=== PATIENT | male | born 1960 | race Caucasian/White ===

== ENCOUNTER 2019-11-25 13:49 | Emergency (ER) | payer OTHER, SELFPAY ==
[2019-11-25 13:54] VITALS: BP 118/71; PULSE 85; RESP 20; TEMP 37.6; O2SAT 98
--- NOTE | 2019-11-25 14:38 | ED.GENADULT ---
HPI - General Adult General Chief complaint: Unspecified Stated complaint: cold, stomach bothers me, decreased intake Time Seen by Provider: 11/25/19 14:34 Source: patient Mode of arrival: ambulatory Limitations: no limitations History of Present Illness HPI narrative: A 59 y/o male presents to the ED with c/o decreased appetite. Pt states that yesterday he did not feel like eating and has felt the same today. He reports fatigue and chills, but denies MALONEY, sore throat, ABD pain, N/V/D, cough, and trouble swallowing. Pt is unsure if he has had a fever. He denies any aggravating or alleviating factors for his symptoms. Dr. Martin is his PCP. complaint: Decreased appetite Onset (ago): day(s) (1) Relieving factors: none Exacerbating factors: none Associated symptoms: fever/chills and other (Fatique) Related Data Allergies Allergy/AdvReac Type Severity Reaction Status Date / Time No Known Allergies Allergy none Unverified 06/10/17 18:25 Review of Systems Review of Systems: All systems reviewed & are unremarkable except as noted in HPI and below Constitutional: Constitutional: Reports chills, Reports fatigue and Reports poor appetite ENT: Denies sore throat and Denies other (Trouble swallowing) Respiratory: Respiratory: Denies cough Gastrointestinal: Gastrointestinal: Denies abdominal pain, Denies diarrhea, Denies nausea and Denies vomiting Neurologic: Denies headache(s) PMFSH Past Medical History Medical History (Updated 11/25/19 @ 15:29 by Jeaneth Salazar MD) Prostate cancer Surgical History Surgical History (Updated 11/25/19 @ 14:40 by Leila Butcher) History of hernia repair Social History Social History (Updated 11/25/19 @ 14:40 by Leila Butcher) Smoking status: Never smoker Exam Const: General: cooperative, no acute distress and alert Nutritional Appearance: well nourished Orientation/consciousness: patient oriented x3 Limitations: no limitations HENMT: Mouth: Yes lip normal and Yes moist mucous membranes Throat: posterior oropharynx abnormal erythema Neck: Neck: lymphadenopathy anterior cervical Resp: Effort & Inspection: normal respiratory effort Auscultation: clear to auscultation bilaterally Cardio: Rate: regular rate Rhythm: regular rhythm GI: GI Palp: Yes Soft to palpation and No Tenderness to palpation present (GI) Auscultation: normal bowel sounds Skin: General skin exam: normal color Neuro: General: patient oriented x3 Cognition (Neuro): normal cognition Speech: normal speech Extrem: General: normal to inspection, full ROM and no clubbing, cyanosis or edema Psych: Mental Status: mental status grossly normal Affect: normal affect Attitude: cooperative Course Course Emergency Course: Patient with what sounds like fever at home. Patient without significant focal symptomatology. He does have positive strep testing accompanied with pharyngeal erythema and anterior cervical adenopathy. Will prescribe amoxicillin and advised primary care follow-up. Vital Signs Vital signs: Vital Signs Temperature 99.7 F H 11/25/19 13:54 Pulse Rate 85 11/25/19 13:54 Respiratory Rate 11/25/19 13:54 Blood Pressure 118/71 11/25/19 13:54 Pulse Oximetry 98 11/25/19 13:54 Temperature 99.7 F H 11/25/19 13:54 Pulse Rate 85 11/25/19 13:54 Respiratory Rate 11/25/19 13:54 Blood Pressure 118/71 11/25/19 13:54 Pulse Oximetry 98 11/25/19 13:54 Medical Decision Making Vital Signs Vital Signs: Vital Signs Temperature 99.7 F H 11/25/19 13:54 Pulse Rate 85 11/25/19 13:54 Respiratory Rate 20 11/25/19 13:54 Blood Pressure 118/71 11/25/19 13:54 Pulse Oximetry 98 11/25/19 13:54 Temperature 99.7 F H 11/25/19 13:54 Pulse Rate 85 11/25/19 13:54 Respiratory Rate 11/25/19 13:54 Blood Pressure 118/71 11/25/19 13:54 Pulse Oximetry 98 11/25/19 13:54 Lab Data Lab results reviewed: Yes I reviewed the patient's lab resul
[2019-11-25 16:12] VITALS: BP 118/67; PULSE 68; RESP 16; O2SAT 99
== END 2019-11-25 16:15 | disposition home or self-care (01) ==
PROVIDERS: Emergency Provider Emergency Medicine; PCP Internal Medicine Infectious Disease
DX: J02.0 Streptococcal pharyngitis (principal)
CPT/HCPCS: 87804; 87880; 99283

== ENCOUNTER 2021-03-31 08:17 | Emergency (ER) | payer OTHER, SELFPAY ==
--- NOTE | ~2021-03-31 | XR_ITS ---
EXAMINATION: XR femur RT min 2V DATE: 03/31/2021 10:09 INDICATION: Right upper leg pain and erythema TECHNIQUE: Overlapping proximal and distal, AP and lateral views of the right femur were obtained. COMPARISON: None FINDINGS: Alignment is normal. No fracture. Mild osteoarthritis at the right knee with small central osteophyt e and subarticular cystic change at the apical ridge suggesting associated high-grade patellar chondr omalacia. Small enthesopathic ossicle at the proximal pole of the patella. No cortical erosions or pe riosteal reaction. Couple surgical clips project over the right pubic body and one along the soft tis sues at the medial aspect of the mid thigh. No knee joint effusion. Soft tissues are unremarkable. IMPRESSION: 1. 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 No other osseous abnormality. Reviewed, dictated and finalized at location A.
[2021-03-31 08:22] VITALS: BP 147/83; PULSE 75; RESP 20; TEMP 36.4; O2SAT 98
--- NOTE | 2021-03-31 09:34 | ED.WOUNDLAC ---
HPI - Wound/Laceration General Chief Complaint: Wound/Laceration Stated Complaint: right leg pain Time Seen by Provider: 03/31/21 09:03 Source: patient Mode of arrival: ambulatory Limitations: no limitations History of Present Illness HPI narrative: This is a 60-year-old male that presents to the emergency department for a rash noted over the last couple of days. Reports he soaked his feet in hot water and after that noted a red rash on his bilateral lower extremities. Right reports yesterday he started to note an area of redness to the right upper thigh with central bruising. This area is painful to touch. No known injury or trauma. Denies fever. Related Data Allergies Allergy/AdvReac Type Severity Reaction Status Date / Time No Known Allergies Allergy none Verified 03/31/21 08:28 Review of Systems Review of Systems: Narrative: CONSTITUTIONAL: Denies fever SKIN: Reports rash. Denies itching. All systems reviewed & are unremarkable except as noted in HPI and below PMFSH Past Medical History Medical History (Updated 03/31/21 @ 11:51 by Karine John PA-C) Prostate cancer Surgical History Surgical History (Updated 11/25/19 @ 14:40 by Leila Butcher) History of hernia repair Social History Social History (Updated 11/25/19 @ 14:40 by Leila Butcher) Smoking status: Never smoker Gender identity (if verbalized by the patient): Male Exam Narrative: Exam Narrative: GENERAL: Well-appearing, well-nourished, and in no acute distress. HEAD: Normocephalic, atraumatic. EYES: EOMI. ENT: Nares clear, no rhinorrhea or epistaxis. Mucous membranes moist. Oropharynx without tonsillar hypertrophy exudate or other lesions. Bilateral TMs pearly jimenez non-bulging NECK: Supple. No adenopathy or masses. CHEST: Clear to auscultation. No respiratory distress. No wheezes rales or rhonchi HEART: Regular rate and rhythm. No murmur heard. Normal peripheral pulses. EXTREMITIES: Normal range of motion. No edema. SKIN: Warm, dry. Scattered, red macules present on the bilateral lower extremities. Right upper thigh with moderate sized area of erythema with central clearing with purpuric lesions centrally NEURO: No focal deficits. Alert and oriented x3. PSYCH: Normal mood and affect Course Vital Signs Vital signs: Vital Signs Temperature 97.5 F L 03/31/21 08:22 Pulse Rate 75 03/31/21 08:22 Respiratory Rate 20 03/31/21 08:22 Blood Pressure 147/83 H 03/31/21 08:22 Pulse Oximetry 98 03/31/21 08:22 Temperature 97.5 F L 03/31/21 08:22 Pulse Rate 75 03/31/21 08:22 Respiratory Rate 20 03/31/21 08:22 Blood Pressure 147/83 H 03/31/21 08:22 Pulse Oximetry 98 03/31/21 08:22 MDM - Wound/Laceration MDM Narrative Medical decision making narrative: Patient presents to the ER for rash present over the last couple of days. Rash concerning for possible vasculitis. He is afebrile and nontoxic-appearing. CBC does show leukocytosis to 14 yet. ESR is normal, CRP is elevated to 3.8. UA with protein, no evidence of infection. JAZMINE and ANCA screen are pending. C4 is normal. Right femur x-ray is without acute osseous abnormalities. Erythema present on the right upper thigh does seem concerning for cellulitis. Patient will be started on antibiotic for this. I did attempt to reach his primary without success. I spoke with patient about needing close follow-up with his primary for further evaluation and possible biopsy of the lesions. He is stable and felt appropriate for further outpatient valuation. He was given warnings to return to the ER Lab Data Attestation: I reviewed the patient's lab results. Result diagrams: 03/31/21 09:41 03/31/21 09:41 Labs: Lab Results 03/31/21 03/31/21 03/31/21 Range/Units 09:41 09:41 09:41 WBC 14.0 H (4.5-10.0) K/mm3 RBC 5.10 (4.6-6.20) M/mm3 Hgb 15.6 (14.0-18.0) g/dL Hct 47.1 (42.0-52.0) % MCV 92.4 (80-100) fl MCH 30.6
[2021-03-31 09:52] LABS: Basophils Percent Auto 0.2 % (0.2-1.2); Eosinophils Absolute Auto 0.2 K/mm3 (0-0.3); Eosinophils Percent Auto 1.2 % (0-4.4); Hematocrit 47.1 % (42.0-52.0); Hemoglobin 15.6 g/dL (14.0-18.0); Immature Granulocyte Absolute 0.04 K/mm3 (0.00-0.031); Immature Granulocyte Percent A 0.3 % (0-0.5); Lymphocytes Absolute Auto 0.85 K/mm3 (0.9-3.2); Lymphocytes Percent Auto 6.1 % (18.3-44.2); Mean Corpuscular HGB Conc 33.1 g/dl (32-36); Mean Corpuscular Hemoglobin 30.6 pg (26-34); Mean Corpuscular Volume 92.4 fl (80-100); Mean Platelet Volume 8.7 fl (7.4-10.4); Monocytes Absolute Auto 0.5 K/mm3 (0.1-0.6); Monocytes Percent Auto 3.3 % (2.6-8.5); Neutrophils Absolute Auto 12.5 K/mm3 (1.3-6.7); Neutrophils Percent Auto 88.9 % (45.5-73.1); Platelet Count Result 229 k/mm3 (150-375)
[2021-03-31 09:55] LABS: Add Urine Microscopic? YES; Appearance Urine Clear (Clear); Bilirubin Urine Negative (Negative); Blood Urine Negative (Negative); Color Urine Yellow (Yellow); Glucose Urine UA Negative (Negative); Ketones Urine Negative (Negative); Leukocyte Esterase Ur Negative LEU/UL (Negative); Mucus Urine Heavy /lpf; Nitrate Urine Negative (Negative); Protein Urine 1+ mg/dL (Negative); WBC Urine 0-3 /hpf
[2021-03-31 10:05] LABS: Alanine Aminotransferase 20 U/L (4-50); Albumin Level 4.5 g/dL (3.5-5.1); Alkaline Phosphatase 66 U/L (38-126); Anion Gap 8 mmol/L (8-16); Aspartate Amino Transferase 23 U/L (17-59); Bilirubin,Total 1.2 mg/dL (0.2-1.3); Blood Urea Nitrogen 20 mg/dL (9-20); CRP 3.8 mg/dL (<1.0); Calcium 9.4 mg/dL (8.4-10.2); Carbon Dioxide 30 mmol/L (22-30); Chloride 104 mmol/L (98-107); Estimated CRCL calculation 65 ml/min; Estimated Glomerular Filt Rate > 60; Glucose 131 mg/dL (75-110); Potassium 3.9 mmol/L (3.4-5.0); Sodium 142 mmol/L (137-145)
[2021-03-31 10:30] LABS: Erythrocyte Sedimentation Rate 16 mm/hr (0-20)
[2021-03-31 12:08] VITALS: BP 147/91; PULSE 58; RESP 16; O2SAT 99
[2021-04-02 10:50] LABS: ANCA Screen Negative (Negative)
== END 2021-03-31 12:10 | disposition home or self-care (01) ==
PROVIDERS: Physician Assistant; Emergency Provider Emergency Medicine; PCP Internal Medicine Infectious Disease
DX: L03.115 Cellulitis of right lower limb (principal); R21 Rash and other nonspecific skin eruption; Z85.46 Personal history of malignant neoplasm of prostate
CPT/HCPCS: 36415; 73552; 80053; 81001; 85025; 85652; 86021; 86038; 86140; 86160; 99283